=== PATIENT | female | born 2005 | race Two or more races ===

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

== ENCOUNTER 2023-02-22 21:18 | Emergency (ER) | payer OTHER ==
[~2023-02-22] VITALS: Ht 165.1 cm; Wt 59.0 kg
[2023-02-23 00:14] LABS: HEMATOCRIT 42.6 % (36.0-45.00); HEMOGLOBIN 14.4 g/dL (12.0-15.00); MEAN CORPUSCULAR HEMOGLOBIN 31.3 pg (27.00-32.0); MEAN CORPUSCULAR HGB CONC 33.7 g/dl (32.0-36.0); PLATELET COUNT 223 K/uL (150-450); RED BLOOD COUNT 4.58 M/uL (4.00-6.00); RED CELL DISTRIBUTION WIDTH 13.1 % (11.5-14.5)
[2023-02-23 00:27] LABS: ALBUMIN 3.4 gm/dL (3.4-5.0); BILIRUBIN TOTAL 0.29 mg/dL (0.3-1.2); CALCIUM 9.3 mg/dL (8.5-10.1); CREATININE SERUM 0.83 mg/dL (0.55-1.02); GFR 88.56; GLOBULINA 4.1 G/DL (2.4-3.5); POTASSIUM 3.54 mEq/L (3.5-5.1); TOTAL PROTEIN 7.5 gm/dL (6.4-8.2)
[2023-02-23] MEDS ORDERED: ORASEP SPRAY30 ML MM (02:47)
== END 2023-02-23 03:01 ==
LOC: ER 21:18 → EMR PED 21:36
PROVIDERS: Emergency Medicine Pediatric Emergency Medicine
DX: R53.81 Other malaise (principal); K13.79 Other lesions of oral mucosa; R59.1 Generalized enlarged lymph nodes; R50.9 Fever, unspecified; Z20.822 Contact with and (suspected) exposure to COVID-19